=== PATIENT | female | born 1970 | race Caucasian/White ===

== ENCOUNTER 2024-04-15 14:18 | Emergency (ER) | payer OTHER ==
[2024-04-15 14:32] VITALS: BP 128/70; PULSE 76; RESP 16; TEMP 99; BMI 34.0
[2024-04-15] MEDS ORDERED: ACETAMINOPHEN 500 MG TABLET (FP) ONE (15:44)
[2024-04-15] MEDS ORDERED: KETOROLAC TROMETHAMINE 15 MG/ML VIAL ONE (15:44)
[2024-04-15] MEDS: KETOROLAC TROMETHAMINE 15 MG/ML VIAL IM ONE (15:46)
[2024-04-15] MEDS: ACETAMINOPHEN 500 MG TABLET (FP) PO ONE (15:47)
== END 2024-04-15 18:17 | disposition home or self-care (01) ==
LOC: JER 14:18 → JERFT 14:18
PROC: 3E0133Z Introduction of Anti-inflammatory into Subcutaneous Tissue, Percutaneous Approach (ICD-10-PCS; principal; 2024-04-15)
DX: M77.31 Calcaneal spur, right foot (principal); M25.571 Pain in right ankle and joints of right foot; M25.471 Effusion, right ankle
CPT/HCPCS: 73610-TC-RT-FY; 99284-25